=== PATIENT | male | born 1940 | race Caucasian/White ===

== ENCOUNTER 2017-10-15 02:34 | Day surgery (SDC) | payer MEDICARE, OTHER ==
[2017-10-15] VITALS (7 sets, daily range): BP systolic 98–136; BP diastolic 60–88
[~2017-10-15] VITALS: Ht 180.3 cm; Wt 85.3 kg
[~2017-10-15 02:34] MED LIST: ASPI-1471 PO; CHOL10005 PO; EZET10TA41 PO; EZET1TAB81 PO; LEVO50TA86 PO; LIS20 PO; OMEG-11 PO; SIMV-49 PO
[2017-10-15] MEDS ORDERED: NORMOSOL R SOLN(*) 1000 ML BAG 1,000 ML IV PRN (09:10)
[2017-10-15] MEDS ORDERED: LIDOCAINE/SOD BICARB 8.4% SYR ID ONE (09:10)
[2017-10-15] MEDS ORDERED: PROPOFOL EMUL(*) 10MG/ML 20 ML 40 ML ONE (09:29)
[2017-10-15] MEDS ORDERED: LIDOCAINE MPF 1% 5 ML VIAL ONE (09:29)
--- NOTE | 2017-10-15 10:25 | Short(Outpt) Discharge Summary ---
Discharge Summary Reason for Hosp/Final Diag: (1) Family history of colon cancer Hospital Course & Plan: Colonoscopy with polypectomy completed without problems. Departure Discharge to: Home, Self Care Discharge Instructions Home Meds Reported Medications [place]-3 Fatty Acids/Fish Oil (FISH OIL 1,000 MG CAPSULE) Unknown Strength Capsule, PO, CAPSULE 10/01/17 Cholecalciferol (Vitamin D3) (VITAMIN D3) Unknown Strength Tablet, PO, TAB 10/01/17 Aspirin (ASPIR 81) 81 Mg Tablet.dr, 81 MG PO QDAY, TAB 10/01/17 Levothyroxine Sodium (LEVOTHYROXINE SODIUM) Unknown Strength Tablet, 0.5 MG PO QDAY, TAB 10/01/17 Simvastatin (SIMVASTATIN) 20 Mg Tablet, 20 MG PO HS 09/25/12 Lisinopril (Prinivil) 20 Mg Tab, 20 MG PO QDAY, #20 0 Refills 08/22/07 Diet: Regular Activity: As Tolerated Special Instructions: Your colonoscopy was completed without problems and your prep was excellent (Good Job!!). I removed 5 small polyps from your colon and rectum and I biopsied and focally inflamed area of your cecum. My office will call you in the next week or so and let you know what the polyps are, what the biopsy shows, and when your next colonoscopy should be (3 or 5 years) depending on pathology results. KIMBERLY FISHER MD Oct 15, 2017 10:25
== END 2017-10-15 11:30 | disposition home or self-care (01) ==
LOC: OR 02:34
PROVIDERS: ATTEND Surgery
DX: Z12.11 Encounter for screening for malignant neoplasm of colon (principal); D12.8 Benign neoplasm of rectum; K63.5 Polyp of colon; K52.9 Noninfective gastroenteritis and colitis, unspecified; E03.9 Hypothyroidism, unspecified; I10 Essential (primary) hypertension; E78.5 Hyperlipidemia, unspecified; Z80.0 Family history of malignant neoplasm of digestive organs
CPT/HCPCS: 00811; 45380; 45385; 88305; J2001; J2704